=== PATIENT | female | born 1975 | race Caucasian/White ===

== ENCOUNTER 2018-07-16 07:25 | Outpatient (CLI) | payer OTHER ==
[~2018-07-16 07:25] MED LIST: LEVO25TA2 PO; LIOT5TAB10 PO
== END 2018-07-16 23:59 | disposition home or self-care (01) ==
LOC: CFH 07:25
PROVIDERS: ATTEND Family Medicine
DX: Z12.31 Encounter for screening mammogram for malignant neoplasm of breast (principal)
CPT/HCPCS: 77063; 77067

== ENCOUNTER → 2019-07-25 | Outpatient (CLI) | payer OTHER ==
[~2019-07-25] MED LIST changes: +LISI-167 PO
== END | disposition home or self-care (01) ==
LOC: CFH 09:28
PROVIDERS: ATTEND Family Medicine
DX: Z12.31 Encounter for screening mammogram for malignant neoplasm of breast (principal)
CPT/HCPCS: 77063; 77067